=== PATIENT | male | born 2000 | race Caucasian/White ===

== ENCOUNTER 2019-04-22 16:33 | Emergency (ER) | payer BC ==
[~2019-04-22] VITALS: Ht 185.4 cm; Wt 81.6 kg
[2019-04-22 16:42] VITALS: BP 154/81; Ht 185.4 cm; Wt 81.6 kg
== END 2019-04-22 17:49 | disposition home or self-care (01) ==
LOC: ED 16:33
DX: B34.9 Viral infection, unspecified (principal); R11.2 Nausea with vomiting, unspecified
CPT/HCPCS: 87804